=== PATIENT | male | born 1960 | race Caucasian/White ===

== ENCOUNTER 2017-10-12 11:02 | Outpatient (CLI) | payer OTHER ==
[~2017-10-12 11:02] MED LIST: IOPHEN DM-100 MG/5 M PO; LEVAQUIN750 MG PO; OSEL75CA PO; PRINIVIL5 MG PO; XOPENEX1.25 MG/0. IH
== END 2017-10-12 14:06 | disposition home or self-care (01) ==
LOC: RAD 11:02
DX: R05 Cough (principal)

== ENCOUNTER 2018-07-19 12:05 | Outpatient (CLI) | payer OTHER | END 2018-07-19 17:00 | disposition home or self-care (01) | LOC: TOM 12:05 | DX: E03.8 Other specified hypothyroidism (principal); E04.8 Other specified nontoxic goiter; K21.9 Gastro-esophageal reflux disease without esophagitis; R05 Cough; M54.5 Low back pain ==

== ENCOUNTER 2018-08-08 07:28 | Outpatient (CLI) | payer OTHER | END 2018-08-08 07:37 | disposition home or self-care (01) | LOC: SONOGRAMA 07:28 | DX: E04.1 Nontoxic single thyroid nodule (principal) ==